=== PATIENT | female | born 1970 | race Caucasian/White ===

== ENCOUNTER 2020-08-02 11:15 | Outpatient (REF) | payer OTHER, SELFPAY ==
--- NOTE | ~2020-08-02 | MM_ITS ---
EXAMINATION: MM SCREENING DIGITAL BREAST TOMOSYNTHESIS, BILATERAL CLINICAL INFORMATION: Screening. Asymptomatic. The lifetime risk of breast cancer based on the Tyrer-Cuzick Model is 7%. COMPARISON: Mammography: 07/28/2019, 05/14/2018, 03/21/2017 TECHNIQUE: Digital breast tomosynthesis is performed in both the craniocaudal and mediolateral oblique views along with computer-aided detection (CAD). Synthesized 2D images are generated from the tomosynthesis. FINDINGS: There are scattered areas of fibroglandular density (ACR BI-RADS breast composition Category b). There are no significant masses, abnormal calcifications, or other abnormalities. Parenchymal pattern is similar to prior studies. The skin contours are smooth. MM/MM tomosynthesis screening BI IMPRESSION: No mammographic evidence of malignancy. ASSESSMENT: BI-RADS 1: Negative RECOMMENDATION: Routine annual mammography screening. This patient's information was entered into a reminder system with a target due date for their next mammogram.
== END 2020-08-02 11:16 | disposition home or self-care (01) ==
LOC: HO.MAMMO 11:15
PROVIDERS: PCP Hospitalist; Visit Provider Hospitalist
DX: Z12.31 Encounter for screening mammogram for malignant neoplasm of breast (principal)
CPT/HCPCS: 77063; 77067

== ENCOUNTER 2021-05-24 06:06 | Outpatient (REF) | payer OTHER, SELFPAY | END 2021-05-24 06:07 | disposition home or self-care (01) | LOC: HO.HMGCLDS 06:06 | PROVIDERS: Visit Provider Internal Medicine | DX: Z20.822 Contact with and (suspected) exposure to COVID-19 (principal) | CPT/HCPCS: C9803; U0003; U0005 ==

== ENCOUNTER 2021-10-20 10:18 | Outpatient (REF) | payer OTHER, SELFPAY ==
--- NOTE | ~2021-10-20 | MM_ITS ---
EXAMINATION: MM SCREENING DIGITAL BREAST TOMOSYNTHESIS, BILATERAL CLINICAL INFORMATION: Screening. Asymptomatic. The lifetime risk of breast cancer based on the Tyrer-Cuzick Model is 6.8%. COMPARISON: Mammography: August 02, 2020 and studies dating back to February 06, 2012 TECHNIQUE: Digital breast tomosynthesis is performed in both the craniocaudal and mediolateral oblique views along with computer-aided detection (CAD). Synthesized 2D images are generated from the tomosynthesis. FINDINGS: The breasts are almost entirely fatty (ACR BI-RADS breast composition Category a). There are no significant masses, abnormal calcifications, or other abnormalities. MM/MM tomosynthesis screening BI IMPRESSION: There are no significant changes from prior study. ASSESSMENT: BI-RADS 1: Negative RECOMMENDATION: Routine annual mammography screening. This patient's information was entered into a reminder system with a target due date for their next mammogram.
== END 2021-10-20 10:19 | disposition home or self-care (01) ==
LOC: HO.MAMMO 10:18
PROVIDERS: PCP Family Medicine; Visit Provider Family Medicine
DX: Z12.31 Encounter for screening mammogram for malignant neoplasm of breast (principal)
CPT/HCPCS: 77063; 77067

== ENCOUNTER 2022-11-16 08:07 | Outpatient (REF) | payer OTHER, SELFPAY ==
--- NOTE | ~2022-11-16 | MM_ITS ---
EXAMINATION: MM SCREENING DIGITAL BREAST TOMOSYNTHESIS, BILATERAL CLINICAL INFORMATION: Screening. Asymptomatic. The patient has had a prior bilateral breast reduction. The lifetime risk of breast cancer based on the Tyrer-Cuzick Model is 6.8%. COMPARISON: Mammography: This study is compared with the prior exams dating back to 2018. TECHNIQUE: Digital breast tomosynthesis is performed in both the craniocaudal and mediolateral oblique views along with computer-aided detection (CAD). Synthesized 2D images are generated from the tomosynthesis. FINDINGS: The breasts are almost entirely fatty (ACR BI-RADS breast composition Category a). There are no significant masses, abnormal calcifications, or other abnormalities. MM/MM tomosynthesis screening BI IMPRESSION: No mammographic evidence of malignancy. ASSESSMENT: BI-RADS BI-RADS 2 - Benign Findings RECOMMENDATION: Routine annual mammography screening. 1 year F/U This patient's information was entered into a reminder system with a target due date for their next mammogram.
== END 2022-11-16 08:08 | disposition home or self-care (01) ==
LOC: HO.MAMMO 08:07
PROVIDERS: PCP Family Medicine; Visit Provider Family Medicine
DX: Z12.31 Encounter for screening mammogram for malignant neoplasm of breast (principal)
CPT/HCPCS: 77063; 77067

== ENCOUNTER → 2022-11-16 08:15 | Outpatient (BNV) | payer OTHER, SELFPAY | PROVIDERS: PCP Family Medicine; Visit Provider Radiology Diagnostic Radiology | DX: Z12.31 Encounter for screening mammogram for malignant neoplasm of breast (principal) | CPT/HCPCS: 77063; 77067 ==

== ENCOUNTER 2023-11-29 08:00 | Outpatient (REF) | payer OTHER, SELFPAY ==
--- NOTE | ~2023-11-29 | MM_ITS ---
EXAMINATION: MM SCREENING DIGITAL BREAST TOMOSYNTHESIS, BILATERAL CLINICAL INFORMATION: Screening. Asymptomatic. The patient is status post bilateral breast reduction. COMPARISON: Mammography: This study is compared with prior exams dating back to 2019. TECHNIQUE: Digital breast tomosynthesis is performed in both the craniocaudal and mediolateral oblique views along with computer-aided detection (CAD). Synthesized 2D images are generated from the tomosynthesis. FINDINGS: The breasts are almost entirely fatty (ACR BI-RADS breast composition Category a). There are no significant masses, abnormal calcifications, or other abnormalities. Post reduction changes are present. MM/MM tomosynthesis screening BI IMPRESSION: No mammographic evidence of malignancy. ASSESSMENT: BI-RADS BI-RADS 2 - Benign Findings RECOMMENDATION: Routine annual mammography screening. 1 year F/U This examination should not preclude the clinical evaluation of a suspicious palpable abnormality. This patient's information was entered into a reminder system with a target due date for their next mammogram.
== END 2023-11-29 08:01 | disposition home or self-care (01) ==
LOC: HO.MAMMO 08:00
PROVIDERS: PCP Family Medicine; Visit Provider Family Medicine
DX: Z12.31 Encounter for screening mammogram for malignant neoplasm of breast (principal)
CPT/HCPCS: 77063; 77067

== ENCOUNTER → 2023-11-29 08:15 | Outpatient (BNV) | payer OTHER, SELFPAY | PROVIDERS: PCP Family Medicine; Visit Provider Radiology Diagnostic Radiology | DX: Z12.31 Encounter for screening mammogram for malignant neoplasm of breast (principal) | CPT/HCPCS: 77063; 77067 ==

== ENCOUNTER 2023-12-09 13:00 | Outpatient (AMB) | payer OTHER, SELFPAY ==
--- NOTE | 2023-12-09 13:01 | AM.OFFWIN_ITS ---
Intake Vital Signs 12/09/23 13:10 Height 5 ft 5 in Weight 169 lb 2 oz BMI 28.1 BP 120/78 Blood Pressure Location Lt brachial Position Sitting Pulse 82 Pulse Source Pulse Oximeter Temp 98.2 F Temp Source Oral Pulse Oximetry (%) 97 Intake Visit Reasons: EP lower abdomen pain 1 wk Intake Note: pt is here for lower abd pain for 1 week Patient Tobacco Use Status: Never used Tobacco Allergies No Known Allergies Allergy (Verified 12/09/23 13:02) Do you need a note to return to daycare/school/sports/work: Yes HPI HPI Comments History of Present Illness Details Patient is a 53-year-old female complaining of lower abdominal pain x1 week. She states she went to her primary care doctor's office last week and did a urinalysis however she had taken azo so they could not test her urine but they sent it for culture. She said she was given Macrobid which she started taking 4 days ago. She states she has had 2 episodes of diarrhea since taking the Macrobid. She states her abdominal pain has not subsided so she called her PCP's office again this morning and they told her that the urine culture had no growth so she did not have a UTI. So she stopped taking the antibiotic. She is denies any fevers, nausea, vomiting, diarrhea, blood in her urine, sense of urgency of urination or increase in frequency of urine. She denies a history of diverticulitis. She states she does still have her appendix. [facility] Social History (System 12/05/20 @ 13:57 by Nicki Douglas) Patient Tobacco Use Status: Never used Tobacco Review of Systems Const All systems reviewed & are unremarkable except as noted in HPI and below Physical Exam Vital Signs: Last Vital Signs Temp 98.2 F 12/09/23 13:10 Pulse 82 12/09/23 13:10 BP 120/78 12/09/23 13:10 Pulse Ox 97 12/09/23 13:10 BMI result Body Mass Index 28.1 Const General: cooperative, healthy appearing, comfortable, no acute distress and well developed Orientation/consciousness: patient oriented x3 Limitations: no limitations HEENT Head: Yes normal to inspection Eyes General: appearance normal, both eyes and all related structures Neck Neck: Yes normal visual inspection and Yes full ROM Resp Effort & Inspection: normal respiratory effort and able to speak in complete sentences GI Inspection: Yes normal to inspection Palpation (GI): Soft to palpation, Tenderness to palpation present (GI) in the LLQ and suprapubicly; Pathak's sign negative and No hepatosplenomegaly present Skin General skin exam: no rashes or lesions noted Neuro General: patient oriented x3 Extrem General: Yes normal to inspection Assessment & Plan Assessment & Plan (1) Lower abdominal pain: Code(s): R10.30 - Lower abdominal pain, unspecified Plan: Vital signs are stable, less likely a GI issue more likely ovarian, discussed how I can not order an ultrasound at the walk-in clinic and her best bet for a thorough workup would be to go to the emergency department. Called [facility] with expect. Plan see above Coding Level of Care Code New Pt Level 5 (85650) Diagnoses Lower abdominal pain R10.30
[2023-12-09 13:10] VITALS: BP 120/78; PULSE 82; TEMP 36.8; O2SAT 97; BMI 28.1
== END 2023-12-09 14:25 | disposition home or self-care (01) ==
PROVIDERS: PCP Family Medicine; Visit Provider Physician Assistant
DX: R10.30 Lower abdominal pain, unspecified (principal)
CPT/HCPCS: 99204

== ENCOUNTER 2023-12-09 13:40 | Emergency (ER) | payer OTHER, SELFPAY ==
--- NOTE | ~2023-12-09 | US_ITS ---
EXAMINATION: US PELVIS CLINICAL INFORMATION: Left suprapubic pain COMPARISON: None available. TECHNIQUE: Ultrasound of the pelvis is performed using both transabdominal and transvaginal transducers along with Doppler. Transvaginal imaging is performed due to inadequate visualization transabdominally. FINDINGS: Uterus: The uterus is anteverted and measures 10.0 x 4.0 x 6.0 cm. The double wall endometrial thickness is 15 mm. The uterus is smooth in contour and has normal myometrial echogenicity. No visible fibroid. Adnexa: Both ovaries are visualized. There is normal color flow to the adnexa. There is no ovarian torsion. There is no pelvic ascites or fluid collection. Right ovary measures 2.7 x 2.3 x 2 2 cm. Volume 6.4 mL with a 2.7 cm simple appearing cyst/follicle Left ovary measures 1.4 x 1.8 x 2.3 cm. Volume 3.0 mL US/US pelvic and transvaginal IMPRESSION: 2.7 cm simple appearing cyst/follicle in the right ovary. Endometrial cavity measures up to 1.5 cm in thickness which is abnormally thickened for a postmenopausal patient. Clinical correlation and tissue diagnosis may be needed.
[2023-12-09 13:47] VITALS: BP 159/79; PULSE 81; RESP 17; TEMP 36.9; O2SAT 99; BMI 28.0
--- NOTE | 2023-12-09 13:49 | ED.ABDPAIN ---
HPI - Abdominal Pain General Chief Complaint: Abdominal Pain Stated Complaint: Lower abd pain Related Data Home Medications ?Medication ?Instructions ?Recorded ?Confirmed amlodipine 5 mg tablet 5 mg PO DAILY 12/04/21 escitalopram oxalate 10 mg tablet 10 mg PO DAILY 12/04/21 levothyroxine 75 mcg tablet 75 mcg PO DAILY 12/04/21 valsartan 160 mg tablet 160 mg PO DAILY 12/04/21 Allergies Allergy/AdvReac Type Severity Reaction Status Date / Time No Known Allergies Allergy Verified 12/09/23 13:53 [facility] Social History Social History (System 12/05/20 @ 13:57 by Nicki Douglas) Patient Tobacco Use Status: Never used Tobacco Advance Directives: No Advance Directives Information Provided: No Do you have a plan to hurt others: No Plan Physical Exam ED Vital Signs: BMI result Body Mass Index 28.0 Course Course Course Narrative: This is an RME: Additional HPI, ROS, PE not included below will be deferred to primary provider. RME assessment and note performed by: Ngoc Serna PA-C This is a 36-deso-gju-female who presents to the ER with a complaint of abdominal pain. Reports seen one week ago at [facility] she was having what she thought she had a UTI, and was rx'd macrobid, however urine culture did not grow any infection. L lower suprapubic ttp. No urinary symptoms, no vaginal bleeding. further er evalustion needed. Plan: Labs, UA, US Medical Decision Making Lab Data 12/09/23 14:26 12/09/23 14:26 Labs: Lab Results 12/09/23 Range/Units 14:26 WBC 7.2 (4.8-10.8) X10*3/uL RBC 4.01 L (4.20-5.50) X10*6/uL Hgb 12.0 (12.0-16.0) g/dl Hct 35.5 L (37.0-47.0) % MCV 88.5 (80.0-98.0) fL MCH 29.9 (27.0-33.0) pg MCHC 33.8 (31.0-35.0) g/dl RDW 14.3 (11.0-16.0) % Plt Count 398 (160-400) X10*3/uL MPV 8.6 L (9.4-12.3) fL Immature Gran % (Auto) 0.3 (0.0-0.4) % Neut % (Auto) 45.7 (45-73) % Lymph % (Auto) 36.9 (20-40) % [place] % (Auto) 10.7 (2-11) % Eos % (Auto) 5.1 H (0-4) % Baso % (Auto) 1.3 (0-2) % Lymph # (Auto) 2.7 (1.2-4.9) X10*3/uL [place] # (Auto) 0.8 (0.1-1.2) X10*3/uL Eos # (Auto) 0.4 (0.0-0.4) X10*3/uL Baso # (Auto) 0.1 (0.0-0.2) X10*3/uL Abs Immat Gran (auto) 0.02 (0.00-0.03) X10*3/uL Absolute Neuts (auto) 3.3 (2.0-8.3) x10*3/uL Absolute Nucleated RBC 0.000 (0.0-0.012) X10*3/uL Nucleated RBC % (auto) 0.0 (0.0-0.2) /100WBC Sodium 136 (135-145) mmol/L Potassium 4.1 (3.3-5.1) mmol/L Chloride 105 (96-108) mmol/L Carbon Dioxide 22 (22-29) mmol/L Anion Gap 13 (12-20) BUN 13 (9-16) mg/dL Creatinine 0.80 (0.5-1.4) mg/dL Estim Creat Clear Calc 83.0 Estimated GFR > 60 Random Glucose 99 (60-115) mg/dL Calcium 9.7 (8.4-10.2) mg/dL Magnesium 2.1 (1.6-2.6) mg/dL Total Bilirubin 0.5 (0.0-1.0) mg/dL Direct Bilirubin 0.1 (0.0-0.5) mg/dL AST 23 (5-31) U/L ALT 22 (0-31) U/L Alkaline Phosphatase 85 (39-117) U/L Total Protein 7.9 (6.5-8.0) g/dL Albumin 4.2 (3.5-5.0) g/dL Lipase 27 (8-78) U/L Beta HCG, Quant < 2 mIU/mL Discharge Plan Discharge Clinical Impression: Abdominal pain Patient Disposition: Left W/O Completing Treatment Prescriptions: No Action amlodipine 5 mg tablet 5 mg PO DAILY levothyroxine 75 mcg tablet 75 mcg PO DAILY escitalopram oxalate 10 mg tablet 10 mg PO DAILY valsartan 160 mg tablet 160 mg PO DAILY Discharge Date/Time: 12/09/23 20:47
[2023-12-09 14:31] LABS: MANUAL DIFF FLAG NO
[2023-12-09 14:32] LABS: Basophils Absolute Auto 0.1 X10*3/uL (0.0-0.2); Basophils Percent Auto 1.3 % (0-2); Eosinophils Absolute Auto 0.4 X10*3/uL (0.0-0.4); Eosinophils Percent Auto 5.1 % (0-4); Hematocrit 35.5 % (37.0-47.0); Imm Gran Abs Auto 0.02 X10*3/uL (0.00-0.03); Imm Gran Pct Auto 0.3 % (0.0-0.4); Lymphocytes Absolute Auto 2.7 X10*3/uL (1.2-4.9); Lymphocytes Percent Auto 36.9 % (20-40); Mean Corpuscular HGB Conc 33.8 g/dl (31.0-35.0); Mean Corpuscular Hemoglobin 29.9 pg (27.0-33.0); Mean Corpuscular Volume 88.5 fL (80.0-98.0); Mean Platelet Volume 8.6 fL (9.4-12.3); Monocytes Absolute Auto 0.8 X10*3/uL (0.1-1.2); Monocytes Percent Auto 10.7 % (2-11); Neutrophils Absolute Auto 3.3 x10*3/uL (2.0-8.3); Neutrophils Percent Auto 45.7 % (45-73); Platelet Count 398 X10*3/uL (160-400); Red Blood Count 4.01 X10*6/uL (4.20-5.50); Red Cell Distribution Width 14.3 % (11.0-16.0); White Blood Count 7.2 X10*3/uL (4.8-10.8)
[2023-12-09 14:55] LABS: Alanine Aminotransferase 22 U/L (0-31); Albumin Level 4.2 g/dL (3.5-5.0); Alkaline Phosphatase 85 U/L (39-117); Anion Gap 13 (12-20); Aspartate Amino Transferase 23 U/L (5-31); Bilirubin Direct 0.1 mg/dL (0.0-0.5); Bilirubin Total 0.5 mg/dL (0.0-1.0); Blood Urea Nitrogen 13 mg/dL (9-16); Calcium 9.7 mg/dL (8.4-10.2); Carbon Dioxide 22 mmol/L (22-29); Chloride 105 mmol/L (96-108); Estimated Glomerular Filt Rate > 60; Glucose Random 99 mg/dL (60-115); Lipase 27 U/L (8-78); Magnesium 2.1 mg/dL (1.6-2.6); Potassium 4.1 mmol/L (3.3-5.1); Sodium 136 mmol/L (135-145); Total Protein 7.9 g/dL (6.5-8.0)
[2023-12-09 14:57] LABS: HCG Quantitative < 2 mIU/mL
== END 2023-12-09 20:47 | disposition left against medical advice (07) ==
LOC: HO.ED 20:46
PROVIDERS: Physician Assistant Medical; Emergency Provider Emergency Medicine; PCP Family Medicine
DX: R10.30 Lower abdominal pain, unspecified (principal); R10.2 Pelvic and perineal pain; Z79.899 Other long term (current) drug therapy
CPT/HCPCS: 36415; 76830; 76856; 80048; 80076; 83690; 83735; 84702; 85025; 99281; 99283

== ENCOUNTER 2024-12-10 07:28 | Outpatient (REF) | payer BC, SELFPAY ==
--- OUTSIDE RECORDS SUMMARY | 2024-12-10 07:30 | XMS_ITS | Patient Health Record ---
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 Name Role Phone ELENO DE LUNA, KELLY Primary Care Provider Unavaila Carleen Yeung Unavailable [phone] Allergies No Known Allergies Results Component Value Reference Range Notes Urinalysis Reviewed date:12/12/2023 11:34:23 AM Interpretation: Performing Lab: Notes/Report: NITRITE Neg PH 5.0 PROTEIN Neg S.G 1.000 WBC Neg GLUCOSE Neg KETONES Neg UROBILINOGEN Neg BILIRUBIN Neg BLOOD Neg Urinalysis Reviewed date:12/30/2023 12:02:53 PM Interpretation: Performing Lab: Notes/Report: PH 5.0 PROTEIN NEG GLUCOSE NEG BLOOD NEG [id number] IGP No Culture 30 Plus Reviewed date:01/08/2024 01:46:21 PM Interpretation: Performing Lab:[facility], [place], [address] [place] [address], Phone - [phone], Director - [facility] Notes/Report: Clinical Information:[id number] Dates / Results....06/11/19 NIL No. of containers..01 ThinPrep Vial DIAGNOSIS: OTHER: NEGATIVE FOR SQUAMOUS INTRAEPITHELIAL LESION (NSI). ENDOMETRIAL CELLS ARE PRESENT IN A WOMAN >= 45 YEARS OF AGE. THE SHEDDING OF ENDOMETRIAL CELLS IN GEOVANI-POST MENOPAUSAL WOMEN MAY REPRESENT BENIGN ENDOMETRIAL LESIONS, HORMONAL ALTERATIONS OR UNCOMMONLY, ENDOMETRIAL ABNORMALITIES. Specimen adequacy: Satisfact ory for evaluation. No endocervical component is identified. Clinician provided ICD10: Z0 1.419 Performed by: Rj masters, Manager Estate (ASCP) QC reviewed by: Chen ponce, Manager Estate (ASC) Electronically signed by: Ramon Oconnell MD, Pathologist . . Note: The Pap smear is a screening test designed to aid in the detection of premalignant and malignant conditions of the uterine cervix. It is not a diagnostic procedure and should not be used as the sole means of detecting cervical cancer. Both false-positive and false-negative reports do occur. . Test Methodology: This liquid based ThinPrep(R) pap test was screened with the use of an image guided system. HPV Aptima Negative Negative This nucleic acid amplification test detects fourteen high-risk HPV types (16,18,31,33,35,39,45,51,5 2,56,58,59,66,68) without differentiation. HPV Genotype Reflex Criteria not met, HPV Genotype not performed. SURGICAL PATHOLOGY Reviewed date:01/08/2024 10:42:34 AM Interpretation: Performing Lab:Testing performed or reported by [facility], a Service of [facility], [address] [place] [address] Fernando Tariq MD, Bonderite Operator CLIA# [id number] Notes/Report: Patient Name: YOSELIN SHAFER Lab Patient : 1970 (Age: 53) Collection Date: 01/03/2024 Accession Date: 01/03/2024 Sign Out Date: 01/08/2024 Tissue Source: 1:EMB Final Diagnosis: Endometrium, biopsy: - Inactive endometrium with stromal breakdown. Primary Pathologist:Abbey Rodrigues M.D. electronically signed out by: Abbey Rodrigues M.D. / MACIEJ Clinical History: Postmenopausal bleeding, thickened endometrium Gross Description: Labeled endometrial biopsy . Received in formalin is a 1.0 x 0.8 x 0.2 cm aggregate of translucent mucus with red, curry tissue. The specimen is entirely submitted. 1-multiple pieces, x 2. (EG)* As of July 27, 2023, the specimen processing and staining is performed at [facility], [address] [place] [address] (CLIA#[id number]). Its performance characteristics determined by [facility]. Vega Cook M.D. Bonderite Operator of Surgical Pathology, Sherine Rodrigues M.D. Bonderite Operator Cytopathology Phone #: [phone], On-Call Pathologist: [id number] PDF Report Reviewed date:01/08/2024 01:45:55 PM Interpretation: Performing Lab:[facility], [place], [address] [place] [address], Phone - [phone], Director - Rosalina Notes/Report: Clinical Information:[id number] Dates / Results....06/11/19 NIL No. of containers..01 ThinPrep Vial Reason For Referral No Information Medications Medication SIG (Take, Route, Frequency, Duration) Notes Start Date End Date Status Provera 5 MG 1 tablet with food Orally Once a day for 10 days q month; Duration: 90 days 01/24/2024 Active Levothyroxine Sodium 75 MCG Oral; Duration: 90 Days Active amLODIPine Besylate 5 MG TAKE 1 TABLET B Y MOUTH EVERYDAY AT BEDTIME Oral; Duration: 90 Days Active Valsartan 160 MG 1 tablet Orally Once a day Active Lexapro 10 MG 1 tablet Orally Once a day 10MCG Active Social History Tobacco Use: Social History Observation Description Date Details (start date - stop date) Never Smoker NA - NA AUDIT-C (Standard) Question Answer Notes Did you have a drink contain ing alcohol in the past year? Yes How often did you have six o r more drinks on one occasion in the past year? Never (0 point) How many drinks did you have on a typical day when you were drinking in the past year? 1 or 2 drinks (0 point) How often did you have a dri nk containing alcohol in the past year? 2 to 4 times a month (2 points) Points 2 Interpretation Negative Tobacco Control (Standard) Question Answer Notes Tobacco use: Nonsmoker Problems Problem Type SNOMED Code ICD Code Onset Dates Problem Status W/U Status Risk Notes Problem Excessive and frequent menstruation (107310426) Excessive and frequent menstruation with regular cycle (N92.0) Active confirmed Problem Postmenopausal bleeding (84251765) Postmenopausal bleeding (N95.0) Active confirmed Problem Menopause (383361772) Menopausal and female climacteric states (N95.1) Active confirmed Problem Imaging result abnormal (648630794) Abnormal findings on diagnostic imaging of other specified body structures (R93.89) Active confirmed Problem Herpetic vulvovaginitis (14649297) Herpetic vulvovaginitis (054.11) Active confirmed Diag Problem Hypothyroidism (60773790) Unspecified hypothyroidism (244.9) Active confirmed Major Problem Depressive disorder (63870826) Depressive disorder, not elsewhere classified (311) Active confirmed Major Problem Atypical glandular cells on cervical Papanicolaou smear (951311521) Abnormal glandular Papanicolaou smear of cervix (795.00) Active confirmed Diag Problem Surveillance of intrauterine device contraception done (061375959007161) Surveillance of previously prescribed intrauterine contraceptive device (V25.42) Active confirmed Major Vital Signs Temperature 98.2 degrees Fahrenheit 01/24/2024 Blood pressure diastolic 82 mm Hg 01/24/2024 Height 63 in 01/24/2024 Blood pressure systolic 132 mm Hg 01/24/2024 Weight 166 lbs 01/24/2024 BMI 29.4 kg/m2 01/24/2024 Encounters Encounter Location Date Provider Diagnosis Total [address] [address] 05/29/2024 Carleen Mcmillan Total [address] [address] 12/12/2023 Carleen Mcmillan Pelvic Pain R10.2 an d Other specified noninflammatory disorders of uterus N85.[address] [address] 12/30/2023 Carleen Mcmillan Encounter for gynecological examination (general) (routine) without abnormal findings Z01.419 ; Encounter for screening mammogram for malignant neoplasm of breast Z12.31 and Postmenopausal bleeding N95.[address] [address] 01/03/2024 Carleenrahul Wrightva Postmenopausal bleed ing N95.0 and Abnormal findings on diagnostic imaging of other specified body structures R93.[address] [address] 01/24/2024 Carleenrahul Mcmillan Postmenopausal bleed ing N95.0 and Abnormal findings on diagnostic imaging of other specified body structures R93.89 Total [facility] [address] [place] [address] 05/29/2024 Carleen Mcmillan Other specified noninflammatory disorders of uterus N85.8 Total [facility] [address] [place] [address] 12/23/2023 Carleen Mcmillan Total [facility] [address] [place] [address] 01/03/2024 Carleen Mcmillan Postmenopausal bleed ing N95.0 and Abnormal findings on diagnostic imaging of other specified body structures R93.[address] [place] [address] 12/12/2023 Carleen Mcmillan Menopausal and femal e climacteric states N95.1 and Other specified noninflammatory disorders of uterus N85.[address] [address] 12/23/2023 Carleen Mcmillan Assessments Encounter Date Diagnosis (ICD Code) Assessment Notes Treatment Notes Treatment Clinical Notes Section Notes 12/12/2023 Pelvic Pain (ICD-10 - R10.2) DISCUSSED COMMON CAUSES OF CRAMPY PELVIC PAINS. IBUPROFEN 600 MG Q 8 HOURS PRN. 12/12/2023 Menopausal and female climacteric states (ICD-10 - N95.1) 12/30/2023 Encounter for gynecological examination (general) (routine) without abnormal findings (ICD-10 - Z01.419) PAP TEST WITH HPV TYPING WAS OBTAINED. 01/03/2024 Postmenopausal bleeding (ICD-10 - N95.0) DISCUSSED COMMON CAUSES OF PMB. DISCUSSED HSONO FINDINGS. LINING MAY BE THICKENED. SEE NOTE. RTO TO DISCUSS EMB AND FORMAL HSON RESULTS IN 2 WEEKS. 01/03/2024 Abnormal findings on diagnostic imaging of other specified body structures (ICD-10 - R93.89) DISCUSSED FINDINGS ON PREVIOUS ULTRASOUND AND FINDINGS ON HSONO. SEE NOTE. 01/03/2024 Postmenopausal bleeding (ICD-10 - N95.0) 01/24/2024 Postmenopausal bleeding (ICD-10 - N95.0) DISCUSSED PATHOLOGY REPORT SHOWING INACTIVE ENDOMETRIUM C/W MENOPAUSE. REASSURED PAT THAT THIS IS A BENIGN FINDING. 01/24/2024 Abnormal findings on diagnostic imaging of other specified body structures (ICD-10 - R93.89) DISCUSSED THICKENED ENDOMETRIUM AND DISCREPANCY BETWEEN ULTRASOUND AND PATHOLOGY REPORT. WILL GIVE PAT PROVERA 5 MG DAILY FOR 10 DAYS Q MONTH X 3 TO SEE IF SHE HAS WITHDRAWAL BLEEDING AND FURTHER THIN OUT THE ENDOMETRIUM. PELVIC ULTRASOUND IN MAY 2024 TO CHECK THE ENDOMETRIUM. SEE ME AFTER ULTRASOUND STUDY IS DONE. 05/29/2024 Other specified noninflammatory disorders of uterus (ICD-10 - N85.8) DISCUSSED FINDINGS ON PELVIC ULTRASOUND TODAY SHOWING THIN ENDOMETRIUM C/W ENDOMETRIAL ATROPHY NOTED ON EMB. PAT WAS REASSURED. D/C PEOVERA. 01/03/2024 Abnormal findings on diagnostic imaging of other specified body structures (ICD-10 - R93.89) 12/30/2023 Encounter for screening mammogram for malignant neoplasm of breast (ICD-10 - Z12.31) REGULAR MAMMOGRAMS AND SBE'S WERE RECOMMENDED. 12/12/2023 Other specified noninflammatory disorders of uterus (ICD-10 - N85.8) 12/12/2023 Other specified noninflammatory disorders of uterus (ICD-10 - N85.8) DISCUSSED PELVIC ULTRASOUND FINDINGS OF THICKENED ENDOMETRIUM. RECOMMENDED FURTHER EVALUATION, HSONO AND EMB. PAT AGREED. THESE WILL BE SCHEDULED. MISO/MOTRIN 12/30/2023 Postmenopausal bleeding (ICD-10 - N95.0) KEEP HSONO AND EMB APPT. DISCUSSED COMMON CAUSES OF PMB. 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
== END 2024-12-10 07:29 | disposition home or self-care (01) ==
LOC: HO.MAMMO 07:28
PROVIDERS: PCP Family Medicine; Visit Provider Family Medicine
DX: Z12.31 Encounter for screening mammogram for malignant neoplasm of breast (principal)
CPT/HCPCS: 77063; 77067

== ENCOUNTER → 2024-12-10 07:30 | Outpatient (BNV) | payer BC, SELFPAY | PROVIDERS: PCP Family Medicine; Visit Provider Radiology Body Imaging | DX: Z12.31 Encounter for screening mammogram for malignant neoplasm of breast (principal) | CPT/HCPCS: 77063; 77067 ==